=== PATIENT | female | born 1950 | race African-American/Black ===

== ENCOUNTER 2016-11-21 00:55 | Emergency (ER) | payer MEDICAID ==
[~2016-11-21] VITALS: Ht 167.6 cm; Wt 96.2 kg
[~2016-11-21 00:55] MED LIST: AMLO10TA PO; ATOR20TA PO; CARI350T34 PO; CHRO400T2 PO; CONJ1TAB PO; DOCU100L PO; HYDR-1098 PO; HYDR-4452 PO; ISOS10TA9 PO; METF500T64 PO; OMEP40EC1 PO; [UNRECOGNIZED DRUG - CODE] PO; [UNRECOGNIZED DRUG - CODE] PO; [UNRECOGNIZED DRUG - CODE] TD
[2016-11-21 01:02] VITALS: BP 143/90
--- NOTE | 2016-11-21 02:05 | NUR ---
PATIENT PRESENTS TO ED WITH LOWER BACK PAIN RADIATING TO HER LOWER EXTREMETIES FOR 3 MONTHS. PT DENIES N/V/D; SKIN IS PINK/WARM/DRY; AAOX4 WITH EVEN AND STEADY GAIT WITH ASSIST OF WALKER; LUNGS CLEAR BL; HR EVEN AND REGULAR; PT DENIES ANY FEVER, CP, SOB, OR COUGH AT THIS TIME; PATIENT STATES PAIN OF 10/10 AT THIS TIME; VSS; PATIENT POSITIONED FOR COMFORT; HOB ELEVATED; BEDRAILS UP X2; BED DOWN. ER MD MADE AWARE OF PT STATUS.
--- NOTE | 2016-11-21 02:10 | NUR ---
PT TAKEN TO BED 4
--- NOTE | 2016-11-21 02:27 | NUR ---
Dr. Snow evaluating patient at bedside.
[2016-11-21] MEDS ORDERED: KETOROLAC 60 MG/2 ML VIAL IM ONE (02:35)
[2016-11-21 03:07] VITALS: BP 151/90
--- NOTE | 2016-11-21 03:08 | NUR ---
Patient discharged with v/s stable. Written and verbal after care instructions given and explained. Patient verbalized understanding. Ambulatory with steady gait. All questions addressed prior to discharge. Advised to follow up with PMD.
== END 2016-11-21 03:08 | disposition home or self-care (01) ==
LOC: MED 00:55
DX: M25.551 Pain in right hip (principal); M54.9 Dorsalgia, unspecified; E11.9 Type 2 diabetes mellitus without complications; I10 Essential (primary) hypertension; F17.200 Nicotine dependence, unspecified, uncomplicated; Z96.89 Presence of other specified functional implants; Z98.51 Tubal ligation status; Z88.6 Allergy status to analgesic agent; Z79.899 Other long term (current) drug therapy
CPT/HCPCS: 81002; 96372; 99283; J1885

== ENCOUNTER 2017-03-08 21:46 | Emergency (ER) | payer MEDICAID ==
[~2017-03-08] VITALS: Ht 167.6 cm; Wt 91.6 kg
[2017-03-08 21:48] VITALS: BP 147/72
--- NOTE | 2017-03-08 22:08 | NUR ---
TO ER [facility]
--- NOTE | 2017-03-08 22:13 | NUR ---
Patient being evaluated by physician at [facility].
--- NOTE | 2017-03-08 22:17 | NUR ---
66/F c/o laceration to left index finger approximately 3 hours ago. Pt states "I was cutting a piece of meat." Pt has laceration to left finger, no active bleeding noted. AOX4, clear speech. VSS.
[2017-03-08] MEDS ORDERED: BACITRACIN OINT 500 UNITS/GM PKT TP ONE (22:44)
[2017-03-08] MEDS ORDERED: LIDOCAINE 1% ED 50 ML ONE (22:44)
--- NOTE | 2017-03-08 23:02 | NUR ---
Dr. Hunter performing laceration repair.
[2017-03-08 23:10] VITALS: BP 156/82
== END 2017-03-08 23:10 | disposition home or self-care (01) ==
LOC: MED 21:46
DX: S61.211A Laceration without foreign body of left index finger without damage to nail, initial encounter (principal); I10 Essential (primary) hypertension; Z88.6 Allergy status to analgesic agent; Z88.8 Allergy status to other drugs, medicaments and biological substances; E11.9 Type 2 diabetes mellitus without complications; Z95.0 Presence of cardiac pacemaker; Z71.6 Tobacco abuse counseling; W45.8XXA Other foreign body or object entering through skin, initial encounter; Y93.89 Activity, other specified; Y92.098 Other place in other non-institutional residence as the place of occurrence of the external cause; Y99.8 Other external cause status
CPT/HCPCS: 12001; 82948; 90471; 90715; 99283; J2001